=== PATIENT | female | born 1960 | race Caucasian/White ===

== ENCOUNTER 2023-01-22 09:46 | Emergency (ER) | payer OTHER ==
[2023-01-22 10:56] LABS: BASOPHILS PERCENT AUTO 0.2 % (0.2-1.2); EOSINOPHILS ABSOLUTE AUTO 0.3 x10^3/uL (0.0-0.5); EOSINOPHILS PERCENT AUTO 2.6 % (0.0-4.0); HEMATOCRIT 39.3 % (33.0-47.0); HEMOGLOBIN 13.7 g/dL (12.0-16.0); IMMATURE GRAN ABSOLUTE AUTO 0.04 x10^3/uL (0.00-0.07); LYMPHOCYTES ABSOLUTE AUTO 0.7 x10^3/uL (1.0-4.8); LYMPHOCYTES PERCENT AUTO 6.9 % (25.0-50.0); MEAN CORPUSCULAR HEMOGLOBIN 29.3 pg (26.0-32.0); MEAN CORPUSCULAR HGB CONC 34.9 g/dL (32.0-36.0); MEAN CORPUSCULAR VOLUME 84.2 fL (78.0-93.0); MONOCYTES ABSOLUTE AUTO 0.6 x10^3/uL (0.0-0.8); MONOCYTES PERCENT AUTO 6.1 % (2.0-11.0); NEUTROPHILS ABSOLUTE AUTO 8.5 x10^3/uL (1.8-7.7); NEUTROPHILS PERCENT AUTO 83.8 % (50.0-80.0); PLATELET COUNT,PLT 90 x10^3/uL (130-400); RED BLOOD CELL COUNT 4.67 x10^6/uL (4.00-5.50); WHITE BLOOD CELL COUNT,WBC 10.2 x10^3/uL (4.0-10.0)
[2023-01-22 11:11] LABS: ANION GAP 12.5 mmol/L (5-15); CALCIUM 9.3 mg/dL (8.5-10.1); CREATININE 1.4 mg/dL (0.55-1.02); EST CRCL DRUG DOSING (CG) 35.98 mL/min; POTASSIUM,K 4.5 mmol/L (3.5-5.1)
== END 2023-01-22 12:14 ==
LOC: SUPCPDRO 09:46 → VM.ED 09:46
DX: L02.612 Cutaneous abscess of left foot (principal); L03.116 Cellulitis of left lower limb; L23.9 Allergic contact dermatitis, unspecified cause; Z91.018 Allergy to other foods; Z91.011 Allergy to milk products
CPT/HCPCS: 36415; 73630-LT; 80048; 85025; 99283